=== PATIENT | female | born 1995 | race Caucasian/White ===

== ENCOUNTER 2025-08-12 16:39 | Emergency (ER) | payer BC ==
[2025-08-12] MEDS ORDERED: Ondansetron PF 4 MG/2 ML Vial ONE (16:58)
[2025-08-12 17:08] LABS: #Basophils 0.07 10x3/uL (0.0-0.2); #Eosinophils 0.21 10x3/uL (0.0-0.7); #Monocytes 0.59 10x3/uL (0.11-0.59); #Neutrophils 4.04 10x3/uL (1.40-6.50); %Basophils 0.8 % (0.0-1.0); %Eosinophils 2.5 % (0.0-10.0); %Lymphocytes 40.7 % (21.0-51.0); %Monocytes 7.1 % (0.0-10.0); %Neutrophils 48.8 % (42.0-75.0); Hematocrit 39.0 % (36.0-47.0); Hemoglobin 13.2 g/dL (12.0-16.0); Mean Corpuscular Hemoglobin 28.7 pg (27.0-31.0); Mean Corpuscular Volume 84.8 fL (78.0-98.0); Platelet Count 283 10x3/uL (130-400); Red Blood Cell (RBC) Count 4.60 mill/uL (4.20-5.40); White Blood Cell (WBC) Count 8.29 10x3/uL (4.8-10.8)
[2025-08-12 17:29] LABS: INR-International Normal Ratio 1.1; Prothrombin Time 14.1 sec (12.0-14.7)
[2025-08-12 17:30] LABS: PTT 29.6 sec (22.9-36.1)
[2025-08-12 17:42] LABS: ALT (SGPT) 23 U/L (Less than 34); AST (SGOT) 28 U/L (11-34); Albumin 4.4 g/dL (3.1-4.5); Alkaline Phosphatase 99 U/L (40-110); Anion Gap 18 mmol/L (10-20); BUN (Urea Nitrogen) 18 mg/dL (7.0-18.7); Bilirubin, Total 0.4 mg/dL (0.3-1.2); Calc. Creatinine Clearance 0 mL/min (70-130); Calcium 9.4 mg/dL (7.8-10.44); Carbon Dioxide 20 mmol/L (22-29); Chloride 105 mmol/L (98-107); Globulin 2.7 g/dL (2.4-3.5); Glucose 128 mg/dL (70-105); Lipase 19 U/L (8-78); Potassium 3.5 mmol/L (3.5-5.1); Sodium 139 mmol/L (136-145)
[2025-08-12] MEDS ORDERED: PROPOFOL 20 ML ONE (17:50)
[2025-08-12] MEDS ORDERED: HYDROcodone/Acetaminophen 5/325 mg Tablet ONE (19:24)
== END 2025-08-12 20:05 | disposition home or self-care (01) ==
LOC: ERS 16:39
DX: S52.501A Unspecified fracture of the lower end of right radius, initial encounter for closed fracture (principal); V89.2XXA Person injured in unspecified motor-vehicle accident, traffic, initial encounter
CPT/HCPCS: 25660; 70450; 71045; 72125; 72170; 80053; 80307; 83690; 84484; 85025; 85610; 85730; 93005; 94760; 96374; 96375; 99152; G0390; J2704

== ENCOUNTER 2025-08-17 06:43 | Day surgery (SDC) | payer BC ==
[2025-08-16 15:30] VITALS: BMI 27.4
[2025-08-17] MEDS ORDERED: Lidocaine 1% (PF) 30 ML VIAL ONE (07:50)
[2025-08-17] MEDS ORDERED: Ropivacaine 0.5% HCl/PF (150 MG/30 ML VIAL) ONE (07:51)
[2025-08-17] MEDS ORDERED: PROPOFOL 20 ML ONE (08:55)
[2025-08-17] MEDS ORDERED: Lidocaine 1% PF 5 ML VIAL ONE (08:55)
[2025-08-17] MEDS ORDERED: fentaNYL PF 100 MCG/2 ML SYRINGE ONE (08:56)
[2025-08-17] MEDS ORDERED: CEFAZOLIN 2 GM VIAL ONE (08:57)
[2025-08-17] MEDS ORDERED: Ondansetron PF 4 MG/2 ML Vial ONE (09:20)
[2025-08-17] MEDS ORDERED: Ropivacaine 2% HCl/PF (20 MG/10 ML VIAL) ONE (09:20)
[2025-08-17] MEDS ORDERED: Glycopyrrolate 0.2 MG/ML 5 ML SYRINGE ONE (09:32)
[2025-08-17] MEDS ORDERED: PHENYLEPHRINE-NS 100 MCG/ML 10 ML SYRINGE ONE (09:46)
[2025-08-17] MEDS ORDERED: Ketorolac Tromethamine 30 MG (1 mL) VIAL ONE (09:49)
== END 2025-08-17 14:30 | disposition home or self-care (01) ==
LOC: SDC 06:43
PROVIDERS: ATTEND Orthopaedic Surgery
PROC: 0PSH04Z Reposition Right Radius with Internal Fixation Device, Open Approach (ICD-10-PCS; principal; 2025-08-17)
DX: S52.531A Colles' fracture of right radius, initial encounter for closed fracture (principal); J45.909 Unspecified asthma, uncomplicated; Z88.0 Allergy status to penicillin; Z88.1 Allergy status to other antibiotic agents; Z79.51 Long term (current) use of inhaled steroids; V49.60XA Unspecified car occupant injured in collision with unspecified motor vehicles in traffic accident, initial encounter
CPT/HCPCS: C1713; J1100; J1885; J2250; J2704; J2795; J3490